=== PATIENT | female | born 1940 | race Caucasian/White ===

== ENCOUNTER 2018-03-28 07:08 | Day surgery (SDC) | payer MEDICARE, MEDICAID ==
[2018-03-28] MEDS ORDERED: PROPOFOL 20 ML (11:20)
== END 2018-03-28 14:20 | disposition home or self-care (01) ==
LOC: GIL 07:08
DX: Z86.010 Personal history of colon polyps (principal); K57.90 Diverticulosis of intestine, part unspecified, without perforation or abscess without bleeding; E78.5 Hyperlipidemia, unspecified; E11.9 Type 2 diabetes mellitus without complications; I10 Essential (primary) hypertension
CPT/HCPCS: 45378; 82962